=== PATIENT | male | born 1950 | race Caucasian/White ===

== ENCOUNTER 2018-04-12 11:22 | Outpatient (REF) | payer MEDICARE, SELFPAY | END 2018-04-12 11:23 | LOC: LBN 11:22 | PROVIDERS: PCP Internal Medicine; Visit Provider Family Medicine | DX: R19.5 Other fecal abnormalities (principal) | CPT/HCPCS: 87230; 87324 ==

== ENCOUNTER 2018-04-15 15:51 | Outpatient (REF) | payer MEDICARE, SELFPAY ==
[2018-04-15 16:12] LABS: Abs Immature Grans 0.06 k/cumm (0.0-0.09); Absolute Lymphocyte Count 0.84 k/cumm (1.2-3.4); Basophils % 0.1; Eosinophils % 0.1; HCT 28.3 % (40.0-50.0); HGB 9.1 g/dL (13.5-17.5); Immature Grans % 0.4; Lymphocytes % 5.7; Mean Corp. HGB Concentration 32.2 g/dL (32.0-36.0); Mean Corpuscular Hemoglobin 30.6 pg (27.0-33.0); Mean Corpuscular Volume 95.3 fL (80-95); Mean Platelet Volume 9.4 fL (8.0-11.0); Monocytes % 6.7; Platelet Count 409 x1000/uL (130-400); RBC 2.97 m/cumm (4.50-6.00); RBC Distribution Width 16.4 % (11.8-14.1); White Blood Cell Count 14.72 k/cumm (4.4-10.8)
[2018-04-15 16:30] LABS: Albumin 1.8 g/dL (3.4-5.0); Alkaline Phosphatase 228 U/L (46-116); Ammonia < 10 umol/L (11-32); BUN 40 mg/dL (7-18); Bilirubin, Total 0.9 mg/dL (0.2-1.0); CREATININE 1.57 mg/dL (0.70-1.30); Calcium 8.8 mg/dL (8.5-10.1); Estimated GFR 44.02 (mL/min/1.73m2); Glucose 316 mg/dL (70-100)
[2018-04-15 16:31] LABS: ALT 80 U/L (12-78); AST 105 U/L (15-37); Chloride 91 mmol/L (98-107); Potassium 5.4 mmol/L (3.5-5.1); Sodium 125 mmol/L (136-145)
[2018-04-15 16:40] LABS: Absolute Basophil Count 0.01 k/cumm (0.0-0.2); Absolute Eosinophil Count 0.01 k/cumm (0.0-0.7); Absolute Monocyte Count 0.99 k/cumm (0.11-0.7); Absolute Neutrophil Count 12.81 k/cumm (1.2-6.7)
[2018-04-15 16:41] LABS: Diff Comment RBC Morph Reviewed; Polychromasia Present
== END 2018-04-15 15:52 ==
LOC: LBN 15:51
PROVIDERS: PCP Internal Medicine; Visit Provider Family Medicine
DX: M62.81 Muscle weakness (generalized) (principal); K74.60 Unspecified cirrhosis of liver; M00.061 Staphylococcal arthritis, right knee; E11.9 Type 2 diabetes mellitus without complications; I10 Essential (primary) hypertension
CPT/HCPCS: 80053; 82140; 85025

== ENCOUNTER 2018-04-16 12:34 | Emergency (ER) | payer MEDICARE, SELFPAY ==
[2018-04-16] VITALS (44 sets, daily range): BP systolic 74–108; BP diastolic 26–55; PULSE 68–111; RESP 11–41; TEMP 36.8–37; O2SAT 91–100
[2018-04-16] MEDS: Normal Saline 250 ML IV (13:00)
--- NOTE | 2018-04-16 13:29 | DI.REPORT_ITS ---
SYMPTOMS/DIAGNOSIS: RT LEG PAIN, ? DVT RIGHT LOWER EXTREMITY ULTRASOUND: There is partially occluding thrombus in the mid femoral vein which appears acute. The popliteal vein and calf veins are freely compressible. A small echogenic focus is noted in the common femoral vein along the wall which could represent an old thrombus. The saphenous vein is free of thrombus. No payan's cyst is seen. IMPRESSION: Partially occluding thrombus in the mid right femoral vein over approximately 10 cm length. Question of an old thrombus along the wall of the distal common femoral vein.
--- NOTE | 2018-04-16 13:29 | ED.GENADUL ---
Disposition Clinical Impression: Osteomyelitis, Discitis of thoracolumbar region, Sepsis, DVT (deep venous thrombosis), Pancreatitis, Hyponatremia, Hyperkalemia, Acute on chronic anemia Disposition: [facility] Condition: Fair Medical Decision Making - Lab Data Laboratory Tests 04/16/18 04/16/18 04/16/18 13:05 13:05 13:30 WBC 20.51 H D RBC 2.72 L Hgb 8.2 L Hct 25.7 L MCV 94.5 MCH 30.1 MCHC 31.9 L RDW 16.1 H Plt Count 405 H MPV 9.6 Immature Gran % 0.5 Neutrophils % 89.1 Lymphocytes % 3.5 Monocytes % 6.8 Eosinophils % 0.0 Basophils % 0.1 Absolute Neutrophils 18.27 H Absolute Lymphocytes 0.72 L Absolute Monocytes 1.39 H Absolute Eosinophils 0.00 Absolute Basophils 0.02 Sodium 124 L* Potassium 5.6 H Chloride 90 L Carbon Dioxide 21.6 Anion Gap 12.4 H BUN 46 H Creatinine 2.11 H Estimated GFR/1.73 m2 31.21 Glucose 340 H Lactate 3.8 H Calcium 8.7 Magnesium 1.9 Total Bilirubin 0.9 Conjugated Bilirubin 0.55 H AST 130 H ALT 90 H Alkaline Phosphatase 215 H Troponin I < 0.02 Total Protein 7.5 Albumin 1.6 L Lipase 722 H - EKG Data -: EKG Interpreted by 04/16/18 1257: 100bpm. Afib. Prominent T waves in V2 through V5. Flattened P waves. QRS 102. No acute ST elevation or depression. No old EKG to compare. - Radiology Data Radiology results: report reviewed, image reviewed Doppler ultrasound right lower extremity: Partially occluding mid femoral vein thrombus approximately 10 cm. - Medical Decision Making 68-year-old male with a history of chronic atrial fibrillation not on anticoagulation, diabetes, recent endocarditis treated with IV antibiotics through PICC line which have recently been DC'd, who presents with right upper quadrant abdominal pain since yesterday at [facility]. No known history of IV drug use. Patient currently denies any abdominal pain on my evaluation. His abdomen is soft and nontender. He does admit to up to 2 episodes of watery brown diarrhea recently. He also admits to right leg pain. He has a stage II sacral ulcer which appears to be healing and no acute fluctuance or significant infection. He also has a healing possible stage I/II ulcer on right lateral leg and right heel with no obvious acute infection. Heart rate 100 and atrial fibrillation on EKG. Blood pressure 80/53. Saturation 96% on room air. Patient appears pale, airway intact. He appears to have some confusion when answering questions but otherwise appears nontoxic. We will place an IV, bolus IV fluids, labs, blood cultures, urinalysis, C. difficile, CT chest abdomen pelvis to rule out PE versus an acute abdominal process. 1450 --discussed with radiologist Dr. Vernon -there is a partially occluded thrombus in the mid femoral vein. Labs reviewed. White blood cell count 20. Hemoglobin 8.2. Baseline hemoglobin has been between 9 and 10. Sodium 124. Potassium 5.6. Anion gap 12.4. Creatinine 2.11. Glucose 340. Lactate 3.8. AST 130. ALT 90. Alk phos 215. Lipase 222. EKG noted prominent T waves and flattened P waves. QRS 102. Will order insulin and 1 amp of bicarb. 1520 --discussed with radiologist Dr. Vernon -CT notes bony destruction in T10 through T11 and L3 through L4 and S1 consistent with a discitis or osteomyelitis. Right lower lobe atelectasis otherwise no acute pneumonia. No other acute solid organ abnormality. Patient has a history of right leg osteomyelitis. There is no old imaging to compare as whether patient has previous osteomyelitis in the vertebral spine. Will start IV antibiotics and Lovenox and admit to ICU for sepsis, osteomyelitis and right leg DVT. Again we are limited in ruling out a PE due to his acute kidney injury, but we are giving anticoagulation for his DVT. 1600 --[facility] -accepting physician Dr. Michael Hay. Would like 1 L LR, 500 mg Flagyl IV. Accepts patient for transfer to the ICU. Patient was informed of plan and is agreeable. He is alert and oriented ?3. History of Present Illness - General Chief complaint: GenMedical Stated complaint: CALEX Time Seen by Provider: 04/16/18 12:35 Source: patient Mode of arrival: ambulatory Limitations: no limitations - History of Present Illness Initial comments: Patient is a 68-year-old male who presents from [facility] for evaluation of right upper quadrant abdominal pain as well as multiple lab abnormalities noted on workup yesterday including elevated liver enzymes and elevated potassium. Nurse from [facility] called stating that patient has a history of cholecystectomy and had complained of right upper quadrant abdominal pain yesterday but had refused transport to the ED. Of note, nurse also states that patient's brother had threatened staff at rehab yesterday that he was going to get a gun and kill everyone because they were not addressing his brothers pain. Patient's brother has a court appointment at 12:30 PM today and is not aware of patient's visit to the ED today. Patient admits to up to 2 episodes of watery brown diarrhea for the past few days. Patient currently denies any abdominal pain. He admits to some right leg pain when crossing his left leg over to his right leg. Patient has not ambulated for several years due to chronic weakness in his right leg pain patient denies known fever, vomiting, chest pain, shortness of breath, cough, sore throat or urinary symptoms. He also otherwise states that he has been eating and drinking well. Patient also had been receiving IV antibiotics through a PICC line for endocarditis but these antibiotics are recently DC'd and he no longer has the PICC line. - Related Data Atorvastatin [Lipitor] 80 mg PO 1800 03/06/18 Furosemide 20 mg PO DAILY 03/06/18 Gabapentin 600 mg PO TID 03/06/18 Insulin Glargine [Lantus Vial] 22 unit SQ 1800 03/06/18 Multivitamin [One Daily] 1 tab PO DAILY 03/06/18 Nicotine [Nicotine Patch] 1 patch TD DAILY 03/06/18 OxyCODONE [Roxicodone] 5 mg PO PRN PRN 03/06/18 OxyCODONE [Roxicodone] 5 mg PO TID 03/06/18 Spironolactone 100 mg PO DAILY 03/06/18 metFORMIN [Glucophage] 500 mg PO BID 03/06/18 Insulin Aspart [Novolog Flexpen] 0 units .ROUTE AC & HS 04/16/18 Allergies Allergy/AdvReac Type Severity Reaction Status Date / Time beet Allergy Unverified 04/16/18 13:09 bupropion Allergy Unverified 04/16/18 13:09 tetanus and diphtheria Allergy Unverified 04/16/18 13:09 toxoids venlafaxine Allergy Unverified 04/16/18 13:09 Review of Systems Constitutional: denies: chills, fever Eyes: denies: eye pain ENT: denies: ear pain, throat pain, dental pain Respiratory: denies: cough, shortness of breath Cardiovascular: denies: chest pain, dyspnea on exertion Gastrointestinal: diarrhea. denies: abdominal pain, nausea, vomiting Genitourinary: denies: urgency, dysuria, frequency Musculoskeletal: denies: back pain Skin: denies: rash, lesions Neurological: denies: headache, weakness, numbness Past Medical History - Past Medical History Medical history: AFIB, CVA/TIA, diabetes, hyperlipidemia Aortic aneurysm, gout, endocarditis Surgical history: other (R foot toe amputation) - Social History Smoking status: never smoker Alcohol use: none Drug use: none General Exam - General Limitations: no limitations General appearance: alert, in no apparent distress - Eye Eye exam: Present: EOMI - ENT ENT exam: Present: mucous membranes dry - Neck Neck exam: Present: normal inspection - Respiratory Respiratory exam: Present: normal lung sounds bilaterally. Absent: respiratory distress, wheezes, rales, rhonchi, stridor - Cardiovascular Cardiovascular Exam: Present: tachycardia, irregular rhythm (afib) - GI/Abdominal GI/Abdominal exam: Present: soft, normal bowel sounds. Absent: distended, tenderness, guarding, rebound, rigid - exam: Present: normal inspection External exam: Absent: erythema, swelling, lesions - Extremities Exam Extremities exam: Present: other (Patient has a stage II sacral ulcer with mild surrounding erythema. He also has a right lateral leg stage II ulcer with healing granulation tissue and no obvious acute infection. He also has a right heel ulcer which is covered with brown material likely Betadine. No significant erythema, edema, fluctuance or induration noted to right leg. Right DP/PT pulse intact. Punctate scar in right upper medial arm at previous PICC line site, no PICC line noted.) - Neurological Exam Neurological exam: Present: alert, oriented X3 - Psychiatric Psychiatric exam: Present: normal affect - Skin Skin exam: Present: warm, dry, intact Course Vital Signs - 24 hr 04/16/18 13:00 Temperature 98.2 F Pulse 108 H Respiratory 23 Rate Blood Pressure 80/53 Pulse Oximetry 93 L
--- NOTE | 2018-04-16 13:31 | DI.RPTCT_ITS ---
SYMPTOMS/DIAGNOSIS: RIGHT UPPER QUADRANT PAIN, HYPOXIA, HYPOTENSION, ? PE, PNEUMONIA, ABDOMINAL PROCESS CT OF THE CHEST, ABDOMEN AND PELVIS: Images were performed from the clavicles through the ischial tuberosities without IV or oral contrast. No IV contrast was given due to renal insufficiency. The coronary arteries are heavily calcified. There is mild aortic calcification. There is dilatation of both atria. There is bilateral gynecomastia. There is mild pleural thickening seen posterolaterally at the right lung base. There are adjacent areas of scarring or atelectasis. There is underlying intralobular septal thickening. There is a focal area of rounded atelectasis at the right lower lobe just above the diaphragm, along with an adjacent area of plate-like atelectasis. The right middle lobe also shows a small focal area of atelectasis. There is a small area of focal bronchiectasis anteromedially in the left upper lobe. No acute infiltrates or effusions are seen. There is a soft tissue density centered around the T10-11 disc with adjacent destruction of the vertebral endplates, greater anteriorly and toward the right. Similar soft tissue density is seen to a lesser extent at the L3 disc level with mild destruction of the endplates. A large amount of soft tissue density is seen centered at the L5-S1 disc with significant destruction of the anterior and right side of the adjacent endplates. The findings are consistent with severe discitis with adjacent osteomyelitis. The patient is status post cholecystectomy. The liver, spleen, pancreas, kidneys and adrenals are unremarkable. There is a small ovoid low density collection seen between the lateral aspect of the spleen and diaphragm of uncertain significance. No adenopathy is seen in the abdomen or pelvis. The bladder appears somewhat distended. The prostate is diminutive, likely secondary to prior prostatectomy. The urinary bladder is distended but otherwise unremarkable. No bowel dilatation or inflammatory changes are seen. There is calcification of the abdominal aorta and iliac arteries, which show some reduction in diameter. There is no aneurysm. IMPRESSION: Findings appear consistent with discitis with adjacent endplate destruction at T10-11, L3-4 and L5-S1.
[2018-04-16 13:36] LABS: Absolute Lymphocyte Count 0.72 k/cumm (1.2-3.4); Basophils % 0.1; HCT 25.7 % (40.0-50.0); HGB 8.2 g/dL (13.5-17.5); Immature Grans % 0.5; Lymphocytes % 3.5; Mean Corp. HGB Concentration 31.9 g/dL (32.0-36.0); Mean Corpuscular Hemoglobin 30.1 pg (27.0-33.0); Mean Corpuscular Volume 94.5 fL (80-95); Mean Platelet Volume 9.6 fL (8.0-11.0); Monocytes % 6.8; Neutrophils % 89.1; Platelet Count 405 x1000/uL (130-400); RBC 2.72 m/cumm (4.50-6.00); RBC Distribution Width 16.1 % (11.8-14.1); White Blood Cell Count 20.51 k/cumm (4.4-10.8)
[2018-04-16 13:38] LABS: Lactate-non-spesis 3.8 mmol/L (0.6-1.4)
[2018-04-16 13:39] LABS: Absolute Basophil Count 0.02 k/cumm (0.0-0.2); Absolute Monocyte Count 1.39 k/cumm (0.11-0.7); Absolute Neutrophil Count 18.27 k/cumm (1.2-6.7)
[2018-04-16 13:59] LABS: ALT 90 U/L (12-78); AST 130 U/L (15-37); Albumin 1.6 g/dL (3.4-5.0); Alkaline Phosphatase 215 U/L (46-116); Anion Gap 12.4 mmol/L (3-11); BUN 46 mg/dL (7-18); Bilirubin, Direct 0.55 mg/dL (0.00-0.20); Bilirubin, Total 0.9 mg/dL (0.2-1.0); CO2 21.6 mmol/L (21.0-32.0); CREATININE 2.11 mg/dL (0.70-1.30); Calcium 8.7 mg/dL (8.5-10.1); Chloride 90 mmol/L (98-107); Estimated GFR 31.21 (mL/min/1.73m2); Glucose 340 mg/dL (70-100); Lipase 722 U/L (73-393); Magnesium 1.9 mg/dL (1.8-2.4); Potassium 5.6 mmol/L (3.5-5.1); Total Protein 7.5 g/dL (6.4-8.2)
[2018-04-16 14:04] LABS: Sodium 124 mmol/L (136-145); Troponin I < 0.02 ng/mL (0.00-0.06)
[2018-04-16] MEDS: Normal Saline 1,000 ML 1000 ML IV (15:18)
[2018-04-16] MEDS: Sodium Bicarbonate 50 MEQ/50 ML SYR IVP (15:19)
[2018-04-16] MEDS: Insulin REGULAR-Human 100 UNITS/ML UNIT 6 UNITS IV (15:19)
[2018-04-16 15:41] LABS: Bilirubin Negative (Negative); Blood Moderate (Negative); Clarity Clear; Glucose 100 mg/dL (Negative); Ketones Negative (Negative); Leukocyte Esterase Small (Negative); Nitrite Negative (Negative); Specific Gravity 1.015 (1.005-1.025)
[2018-04-16 15:52] LABS: Bacteria Moderate HPF (Negative); C & S Indicated? No/Sq. Contamination; Casts Negative LPF (Negative); Crystals Negative HPF (Negative); Epithelial Cells Moderate HPF (Negative); Mucus Negative (Negative); WBC >50 HPF (0-5)
[2018-04-16] MEDS: VANCOMYCIN 1,500 MG in Normal Saline 500 ML 333.3333 MG IVPB (16:03)
[2018-04-16] MEDS: Enoxaparin 80 MG/0.8 ML SYR 70 MG SC (16:05)
[2018-04-16] MEDS: MetroNIDAZOLE 500 MG/100 ML BAG 100 MG IVPB (17:00)
[2018-04-16] MEDS: Lactated Ringers 1,000 ML 1000 ML IV (17:25)
--- NOTE | 2018-04-17 08:21 | NUR.NOTE ---
Addendum entered by Catrina Camargo 04/18/18 07:58: Today, I faxed the urine culture result to the [facility]. Catrina Camargo Original Note: Addendum entered by Catrina Camargo 04/17/18 09:39: At the request of a physician from the [facility]. I also faxed the CT and US reports. Catrina Camargo Original Note: Nursing Note: Faxed to [facility] the preliminary blood culture result. At their request I also faxed the C-diff result. Catrina Camargo Fax .
== END 2018-04-16 17:28 | disposition short-term general hospital (02) ==
PROVIDERS: Emergency Provider Physician Assistant; PCP Internal Medicine
DX: K85.90 Acute pancreatitis without necrosis or infection, unspecified (principal); M46.25 Osteomyelitis of vertebra, thoracolumbar region; M46.45 Discitis, unspecified, thoracolumbar region; A41.01 Sepsis due to Methicillin susceptible Staphylococcus aureus; N17.9 Acute kidney failure, unspecified; I82.411 Acute embolism and thrombosis of right femoral vein; E87.1 Hypo-osmolality and hyponatremia; E87.5 Hyperkalemia; R19.7 Diarrhea, unspecified; E11.65 Type 2 diabetes mellitus with hyperglycemia; Z79.4 Long term (current) use of insulin
CPT/HCPCS: 51702 ×2; 71250; 74176; 93005; 93971; 96361; 96365; 96366; 96367; 96372; 96375; 99285 ×2; J1650; 36415; 36416; 80053; 80076; 82962; 83690; 87040; 87077; 81003; 81015; 83605; 83735; 84484; 85025; 87086; 87186; 87324; 93010